=== PATIENT | male | born 1965 | race Caucasian/White ===

== ENCOUNTER 2019-09-19 08:39 | Emergency (ER) | payer SELFPAY ==
[~2019-09-19] VITALS: Ht 167.6 cm; Wt 63.5 kg
[2019-09-19 08:41] VITALS: BP 148/109
--- NOTE | 2019-09-19 09:02 | NUR ---
54yo M C/O ABDOMINAL PAIN X 3 DAYS DESCRIBED SORENESS, 12/06. PT TAKES PEPTO BISMUTH WHICH PROVIDES TEMPORARY RELIEF. PT STATES THAT HE HAD AN EPISODE OF DIARRHEA THIS AM. DENIES N/V. NO OTHER SYMPTOMS REPORTED. IN ER, VSS. ABDOMEN FLAT AND SOFT, BS ACTIVE ALL QUADRANTS. PT OPSITIONED IN BED COMFOTRABLY, SIDE RAILS UP. ER MD MADE AWARE. DENIES PMH NO MEDS TAKEN NKA
[2019-09-19 10:01] LABS: BASOPHILS # (AUTO) 0.1 K/uL (0.00-0.22); BASOPHILS % (AUTO) 0.9 % (0.0-2.0); EOSINOPHILS % (AUTO) 0.4 % (0.0-4.0); HEMATOCRIT 47.2 % (36-52); LYMPHOCYTES # (AUTO) 1.5 K/uL (2.0-11.5); LYMPHOCYTES % (AUTO) 17.3 % (20.5-51.1); MEAN CORPUSCULAR HEMOGLOBIN 30 pg (27-31); MEAN CORPUSCULAR HGB CONC 34 g/dL (33-37); MEAN CORPUSCULAR VOLUME 89.6 fL (80-94); MONOCYTES # (AUTO) 0.5 K/uL (0.8-1.0); MONOCYTES % (AUTO) 5.9 % (1.7-9.3); NEUTROPHILS # (AUTO) 6.4 K/uL (1.8-7.7); NEUTROPHILS % (AUTO) 75.5 % (42.2-75.2); PLATELET COUNT (AUTO) 270 K/uL (140-450); RED BLOOD CELL COUNT(AUTO) 5.27 MIL/uL (4.20-6.10); RED CELL DISTRIBUTION WIDTH 13.5 % (11.6-13.7); WHITE BLOOD COUNT (AUTO) 8.5 K/uL (4.8-10.8)
[2019-09-19 10:19] LABS: ALBUMIN 3.6 g/dL (3.4-5.0); ANION GAP 12.6 (8-16); CARBON DIOXIDE 28.3 mmol/L (21-32); CREATININE 1.2 mg/dL (0.6-1.3); POTASSIUM 3.9 mmol/L (3.5-5.1)
[2019-09-19 11:08] VITALS: BP 148/109
--- NOTE | 2019-09-19 11:08 | NUR ---
Patient discharged with v/s stable. Written and verbal after care instructions given and explained. Patient alert, oriented and verbalized understanding of instructions. Ambulatory with steady gait. All questions addressed prior to discharge. ID band removed. Patient advised to follow up with PMD. Rx of MAALOX, PEPCID given. Patient educated on indication of medication including possible reaction and side effects. Opportunity to ask questions provided and answered.
== END 2019-09-19 11:08 | disposition home or self-care (01) ==
LOC: MED 08:39
DX: K29.70 Gastritis, unspecified, without bleeding (principal)
CPT/HCPCS: 36415; 80053; 83690; 85025; 99283